=== PATIENT | male | born 1955 | race Caucasian/White ===

== ENCOUNTER 2017-04-13 11:48 | Emergency (ER) | payer OTHER ==
[~2017-04-13] VITALS: Ht 170.2 cm; Wt 74.0 kg
[2017-04-13 11:53] VITALS: BP 124/82; PULSE 109; RESP 16; TEMP 98.6; O2SAT 94
--- NOTE | 2017-04-13 12:13 | PD ---
HPI Chief Complaint: GI Complaint Time Seen by Provider: 12:10 Travel History International Travel<30 days: No Contact w/Intl Traveler<30days: No Traveled to known affect area: No History of Present Illness HPI 61-year-old male patient presents to the ER today with 2 months history of upper abdominal pains with nausea and vomiting intermittently, worse with eating. He states that the pain was keeping him up last night, but then is gone away now and he has 0 pain now. He had a normal bowel movement today. He denies any diarrhea, fevers, or any other symptoms. He states that he has been eating less since he has been having these pains and he has had attempted to weight loss in about a month and a half. Modifying Factors: Worse with food intake Associated Signs & Symptoms: Upper abdominal pain, nausea and vomiting intermittently Risk Factors: None PFSH Past Medical History Medical History: Denies Significant Hx Tetanus Vaccination: > 5 Years Influenza Vaccination: No Social History Alcohol Use: No Tobacco Use: Yes (1 PPD) Substance Use: No Allergies-Medications (Allergen,Severity, Reaction): Coded Allergies: No Known Allergies (Unverified , 04/13/17) Reported Meds & Prescriptions Reported Meds & Active Scripts Active No Active Prescriptions or Reported Medications Review of Systems Except as stated in HPI: all other systems reviewed are Neg Physical Exam Narrative GENERAL: Well-developed elderly white male patient currently in mild distress. Awake and oriented 3. SKIN: Focused skin assessment warm/dry. HEAD: Atraumatic. Normocephalic. EYES: Pupils equal and round. No scleral icterus. No injection or drainage. ENT: No nasal bleeding or discharge. Mucous membranes pink and moist. NECK: Trachea midline. No JVD. CARDIOVASCULAR: Regular rate and rhythm. No murmur appreciated. RESPIRATORY: No accessory muscle use. Clear to auscultation. Breath sounds equal bilaterally. GASTROINTESTINAL: Abdomen soft, mild epigastric tenderness without guarding or rebound, nondistended. Hepatic and splenic margins not palpable. MUSCULOSKELETAL: No obvious deformities. No clubbing. No cyanosis. No edema. NEUROLOGICAL: Awake and alert. No obvious cranial nerve deficits. Motor grossly within normal limits. Normal speech. PSYCHIATRIC: Appropriate mood and affect; insight and judgment normal. Data Data Last Documented VS Vital Signs Date Time Temp Pulse Resp B/P (MAP) Pulse Ox O2 Delivery O2 Flow Rate FiO2 04/13/17 12:20 94 Room Air 04/13/17 11:53 98.6 109 16 124/82 (96) Orders Orders Complete Blood Count With Diff (04/13/17 12:10) Comprehensive Metabolic Panel (04/13/17 12:10) Lipase (04/13/17 12:10) Iv Access Insert/Monitor (04/13/17 12:10) Ecg Monitoring (04/13/17 12:10) Oximetry (04/13/17 12:10) Sodium Chloride 0.9% Flush (Ns Flush) (04/13/17 12:15) Ct Abd/Pel W Iv Contrast(Rout) (04/13/17 12:10) Iohexol 350 Inj (Omnipaque 350 Inj) (04/13/17 14:24) Ed Discharge Order (04/13/17 14:41) Labs Laboratory Tests Test 04/13/17 12:15 White Blood Count 11.6 TH/MM3 Red Blood Count 5.03 MIL/MM3 Hemoglobin 16.6 GM/DL Hematocrit 49.5 % Mean Corpuscular Volume 98.3 FL Mean Corpuscular Hemoglobin 32.9 PG Mean Corpuscular Hemoglobin Concent 33.5 % Red Cell Distribution Width 11.6 % Platelet Count 202 TH/MM3 Mean Platelet Volume 8.9 FL Neutrophils (%) (Auto) 71.9 % Lymphocytes (%) (Auto) 18.9 % Monocytes (%) (Auto) 7.1 % Eosinophils (%) (Auto) 0.9 % Basophils (%) (Auto) 1.2 % Neutrophils # (Auto) 8.4 TH/MM3 Lymphocytes # (Auto) 2.2 TH/MM3 Monocytes # (Auto) 0.8 TH/MM3 Eosinophils # (Auto) 0.1 TH/MM3 Basophils # (Auto) 0.1 TH/MM3 CBC Comment DIFF FINAL Differential Comment Blood Urea Nitrogen 11 MG/DL Creatinine 0.91 MG/DL Random Glucose 97 MG/DL Total Protein 7.2 GM/DL Albumin 3.7 GM/DL Calcium Level 9.1 MG/DL Alkaline Phosphatase 75 U/L Aspartate Amino Transf (AST/SGOT) 11 U/L Alanine Aminotransferase (ALT/SGPT) 20 U/L Total Bilirubin 0.7 MG/DL Sodium Level 137 MEQ/L Potassium Level 3.5 MEQ/L Chloride Level 102 MEQ/L Carbon Dioxide Level 27.2 MEQ/L Anion Gap 8 MEQ/L Estimat Glomerular Filtration Rate 85 ML/MIN Lipase 115 U/L [facility] Medical Decision Making Medical Screen Exam Complete: Yes Emergency Medical Condition: Yes Medical Record Reviewed: Yes Interpretation(s) Laboratory Tests Test 04/13/17 12:15 White Blood Count 11.6 TH/MM3 (4.0-11.0) Neutrophils (%) (Auto) 71.9 % (16.0-70.0) Neutrophils # (Auto) 8.4 TH/MM3 (1.8-7.7) Aspartate Amino Transf (AST/SGOT) 11 U/L (15-37) Estimat Glomerular Filtration Rate 85 ML/MIN (>89) Last 24 hours Impressions Abdomen/Pelvis CT 04/13/17 1210 Signed Impressions: Service Date/Time: Thursday, April 13, 2017 14:16 - CONCLUSION: Negative for an acute process. I do not see etiology for nausea and vomiting for the past 2 months. Correlation suggested. Wayne Harrison MD FACR Differential Diagnosis Abdominal pains, nausea and vomiting: Gastritis versus gastroesophageal reflux versus pancreatitis versus gastric ulcer versus other acute intra-abdominal processes Narrative Course Labwork and CAT scan were fairly unremarkable. At this point, my plan would be to release him with follow-up to primary care physician. Return for any worsening in symptoms as needed. The plan has been discussed with him and he states understanding. According to symptoms, he may have some underlying gastritis and I will give him a acid maris medication as well. Diagnosis Primary Impression: Abdominal pain Med/Other Pt SpecificInfo: Prescription(s) given Scripts Ranitidine (Zantac) 150 Mg Tab 150 MG PO BID for Reduce Stomach Acid, #20 TAB 0 Refills Prov: Crissy Finley MD 04/13/17 Disposition: 01 DISCHARGE HOME Condition: Stable Crissy Finley MD Apr 13, 2017 12:13
[2017-04-13] MEDS ORDERED: SODIUM CHLORIDE 0.9% FLUSH 10 ML FLUSH IV FLUSH PRN (12:15)
[2017-04-13 12:20] VITALS: O2SAT 94
[2017-04-13 12:34] LABS: AUTOMATED NEUTROPHIL # 8.4 TH/MM3 (1.8-7.7); BASOPHIL # 0.1 TH/MM3 (0-0.2); BASOPHIL % 1.2 % (0.0-2.0); EOSINOPHIL # 0.1 TH/MM3 (0-0.4); EOSINOPHIL % 0.9 % (0.0-4.0); HEMATOCRIT 49.5 % (39.0-51.0); HEMOGLOBIN 16.6 GM/DL (13.0-17.0); LYMPH % 18.9 % (9.0-44.0); LYMPHOCYTE # 2.2 TH/MM3 (1.0-4.8); MEAN CELL VOLUME 98.3 FL (80.0-100.0); MEAN CORPUSCULAR HEMOGLOBIN 32.9 PG (27.0-34.0); MEAN CORPUSCULAR HGB CONC 33.5 % (32.0-36.0); MEAN PLATELET VOLUME 8.9 FL (7.0-11.0); MONO % 7.1 % (0.0-8.0); MONOCYTE # 0.8 TH/MM3 (0-0.9); NEUT % 71.9 % (16.0-70.0); PLATELET COUNT 202 TH/MM3 (150-450); RED BLOOD COUNT 5.03 MIL/MM3 (4.50-5.90); RED CELL DISTRIBUTION WIDTH 11.6 % (11.6-17.2); WHITE BLOOD COUNT 11.6 TH/MM3 (4.0-11.0)
[2017-04-13 12:45] LABS: CHLORIDE 102 MEQ/L (98-107); SODIUM (NA) 137 MEQ/L (136-145)
[2017-04-13 12:49] LABS: ALBUMIN 3.7 GM/DL (3.4-5.0); BICARBONATE 27.2 MEQ/L (21.0-32.0); BLOOD UREA NITROGEN 11 MG/DL (7-18); CALCIUM 9.1 MG/DL (8.5-10.1); GLUCOSE,RANDOM 97 MG/DL (74-106); LIPASE 115 U/L (73-393)
[2017-04-13 12:52] LABS: ALT (GPT) 20 U/L (12-78); AST (GOT) 11 U/L (15-37); CREATININE 0.91 MG/DL (0.60-1.30); GLOMERULAR FILTRATION RATE 85 ML/MIN (>89)
[2017-04-13 12:54] LABS: TOTAL BILIRUBIN ADULT 0.7 MG/DL (0.2-1.0); TOTAL PROTEIN 7.2 GM/DL (6.4-8.2)
[2017-04-13 12:55] LABS: ALKALINE PHOSPHATASE 75 U/L (45-117)
[2017-04-13] MEDS ORDERED: IOHEXOL 350 MG/ML 10 ML VIAL (for RAD DIAG) IVCONTRAST ONE (14:24)
--- NOTE | 2017-04-13 14:35 | RADRPT ---
EXAM DATE/TIME: 04/13/2017 14:16 [facility] COMPARISON: No previous studies available for comparison. INDICATIONS : Diffuse abdominal pain with nausea and vomiting for two months. IV CONTRAST: 90 cc Omnipaque 350 (iohexol) IV ORAL CONTRAST: No oral contrast ingested. RADIATION DOSE: 7.48 CTDIvol (mGy) MEDICAL HISTORY : None SURGICAL HISTORY : None. ENCOUNTER: Initial ACUITY: 2 months PAIN SCALE: 5/10 LOCATION: abdomen TECHNIQUE: Volumetric scanning of the abdomen and pelvis was performed. Using automated exposure control and ad justment of the mA and/or kV according to patient size, radiation dose was kept as low as reasonably achievable to obtain optimal diagnostic quality images. DICOM format image data is available electro nically for review and comparison. FINDINGS: LOWER LUNGS: The visualized lower lungs are clear. LIVER: Homogeneous density without lesion. There is no dilation of the biliary tree. No calcified gallston es. SPLEEN: Normal size without lesion. PANCREAS: Within normal limits. KIDNEYS: Small less than 1 cm bilateral renal cysts are noted. There is no stone or obstruction. ADRENAL GLANDS: Within normal limits. VASCULAR: Minimal abdominal calcifications are noted. BOWEL/MESENTERY: Scattered diverticuli sigmoid colon ABDOMINAL WALL: Within normal limits. RETROPERITONEUM: There is no lymphadenopathy. BLADDER: No wall thickening or mass. REPRODUCTIVE: Within normal limits. INGUINAL: There is no lymphadenopathy or hernia. MUSCULOSKELETAL: Mild degenerative changes. CONCLUSION: Negative for an acute process. I do not see etiology for nausea and vomiting for the past 2 months. Correlation suggested. Wayne Harrison MD FACR on April 13, 2017 at 14:32 Board Certified Radiologist. This report was verified electronically.
[2017-04-13] MEDS ORDERED: ZANT150T2 PO (14:43)
[2017-04-13 14:49] VITALS: BP 124/89
== END 2017-04-13 14:55 | disposition home or self-care (01) ==
LOC: PHED 11:48
DX: R10.10 Upper abdominal pain, unspecified (principal); R11.2 Nausea with vomiting, unspecified; F17.200 Nicotine dependence, unspecified, uncomplicated
CPT/HCPCS: 74177; 80053; 83690; 85025; 99285; Q9967